=== PATIENT | male | born 1975 | race Caucasian/White ===

== ENCOUNTER 2025-06-20 06:05 | Day surgery (SDC) | payer OTHER, SELFPAY ==
[2025-06-20] VITALS (13 sets, daily range): BP systolic 107–130; BP diastolic 60–81; PULSE 55–68; RESP 16; TEMP 36.4–36.9; O2SAT 97–100; BMI 20.8
[2025-06-20] MEDS: LACTATED RINGERS 1000 ML 1,000 ML 100 ML IV (06:45)
[2025-06-20] MEDS: SODIUM CHLORIDE 0.9 % (FLUSH) 10 ML SYRINGE IVF (06:45)
--- NOTE | 2025-06-20 07:19 | P.GSOP_ITS ---
Operative Note Date of procedure: 06/20/25 Pre-op diagnosis: 1. Enlarged edematous symptomatic external hemorrhoid. 2. Pain with bowel movements suspicious for acute anal fissure. 3. Limited anal exam in clinic. Post-op diagnosis: 1. Edematous redundant external hemorrhoidal skin tags associated with enlarged internal hemorrhoids right posterior lateral and left lateral. 2. Acute anal fissure. 3. Enlarged internal hemorrhoid right anterior laterally. Type of Procedure: 1. Exam under anesthesia. 2. Two quadrant internal and external hemorrhoidectomy. 3. Lateral internal sphincterotomy. Indications: 50-year-old male was seen in clinic for evaluation of pain with bowel movements. Patient states that he was diagnosed with anal fissure over 4 years ago. He continues to have symptoms of pain on and off. He sometimes notices bleeding with bowel movements. He describes the pain around the anus after bowel movement. This could be present for several hours and then goes away. Sometimes the pain is burning. If patient has a second bowel movement, the pain becomes excruciating and usually lasts for longer period time. He noticed that the symptoms occur more frequently. Sometimes he can have a bowel movement without pain but usually if he has multiple bowel movements in a row, he develops severe pain. The more bowel movements he has, the longer his pain lasts. Patient had a colonoscopy 2 years ago was 2 small polyps removed. Patient has maximized his conservative treatment with a lot of fiber in his diet and drinking a lot of water daily. He only occasionally strains with bowel movements. On clinical exam patient was found to have no clear evidence of acute anal fissure but patient's exam was limited. Patient had a prolapsing multilobulated hemorrhoidal skin tag right posterior lateral. There was a small area of ulceration over the skin tag. Given patient's clinical history and his limited exam, exam under anesthesia was excision of hemorrhoidal skin tag and possible lateral internal sphincterotomy was recommended. The procedure was discussed in detail. The risks associated procedure including infection, bleeding, injury to the external sphincter, temporary and permanent incontinence were all discussed with the patient, and he agreed to proceed. Procedure Description: After discussing the risks and benefits of the procedure, the patient signed informed consent.? The operative site was marked and the patient was brought to the operating room. Patient was intubated by anesthesia and placed prone on the operating table with all pressure points padded. The operative site was then prepped and draped in the usual sterile fashion.? A time-out was then performed. Anoscope was placed into the anal canal and anal fissure was noted posterior midline. Previously seen redundant external hemorrhoidal skin tag was noted right posterior midline. There was also multilobulated enlarged external hemorrhoidal skin tag associated with enlarged internal hemorrhoidal tissue left laterally. An enlarged internal hemorrhoid was noted right anterior laterally. Redundant hemorrhoidal skin tag was noted posterior midline. It was not edematous and this was not addressed with the surgery. I first started with excision of redundant hemorrhoidal skin tag associated with enlarged internal hemorrhoid right posterior laterally. An elliptical incision was made with a needle tip electrocautery from the anoderm up into the anal canal just above the dentate line. Careful dissection of the hemorrhoid complex was done in the plane between the internal anal sphincter and the submucosal vascular plexus up to just above the dentate line in each quadrant described above. Having established the proper plane, the hemorrhoidal tissue was then excised with the Ligasure device and sent to Pathology for analysis. Care was taken to preserve mucosa for a tension-free closure. The wound was closed in a running locked manner starting at the apex (proximal aspect of elliptical excision) with 3-0 chromic suture, coming out to the anoderm and then running back up in a simple fashion and tying down at the apex. I then proceeded with lateral internal sphincterotomy. A mucosal incision was made with cautery at 9:00 in the anal canal. Mucosa was divided with cautery inferiorly and superiorly just enough to see the internal sphincter fibers. This mucosal incision was 1 cm long. The internal sphincter fibers were palpated medial to the intersphincteric groove and isolated with a Carolin clamp. Internal sphincter was then divided with cautery. Since the anal fissure was short in length, I elected to divide slightly over 50% of internal sphincter fibers. Hemostasis was achieved with cautery. The mucosal incision was then closed with a running 3-0 Vicryl suture. I then proceeded with excision of enlarged external hemorrhoid with associated internal hemorrhoid immediately distal to this closed sphincterotomy incision. An elliptical incision was made with a needle tip electrocautery from the anoderm up into the anal canal just above the dentate line. Careful dissection of the hemorrhoid complex was done in the plane between the internal anal sphincter and the submucosal vascular plexus up to just above the dentate line in each quadrant described above. Having established the proper plane, the hemorrhoidal tissue was then excised with the Ligasure device and sent to Pathology for analysis. A mixture of Marcaine with epinephrine and Exparel was then injected for bilateral pudendal nerve block and around the anus. Sterile dressings were then applied outside of the anus. All counts were correct at the end of the case. ? The patient was then woken and transported to the recovery area in stable condition. ? The patient tolerated the procedure well. Findings: Short acute anal fissure was noted. Redundant multilobulated hemorrhoidal skin tags with associated internal hemorrhoid were noted right posterior laterally and left laterally and were excised. Enlarged internal hemorrhoid was noted right anterior laterally and was left untouched. Anesthesia: [facility] Surgeon: Bhumi Serrato MD Estimated blood loss (mL): 10 Additional Specimen Information: 1. Hemorrhoids. Condition: stable Disposition: PACU
--- NOTE | 2025-06-20 07:27 | W.PM.H&PU ---
History & Physical Update History & Physical Update H&P Reviewed and patient assessed: No changes noted
[2025-06-20] MEDS: BUPIVACAINE LIPOSOME 133 MG/10 ML INJ INFILTRATI (08:01)
[2025-06-20] MEDS: BUPIVACAINE 0.25 %/EPI 1:200K 30 ml INJECTION (08:01)
--- NOTE | 2025-06-20 08:52 | P.ANES_ITS ---
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
--- NOTE | 2025-06-20 08:52 | W.ANESCHARGE ---
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
== END 2025-06-20 10:40 | disposition home or self-care (01) ==
PROVIDERS: Visit Provider Surgery
PROC: (CPT 46260; principal; 2025-06-20 07:30)
DX: K64.8 Other hemorrhoids (principal); K60.0 Acute anal fissure; K64.4 Residual hemorrhoidal skin tags
CPT/HCPCS: 46260; 46200; 00902; J0666; J0690; J1100; J1885; J2405; J2704; J2710; J3010; J3490; J7120